=== PATIENT | female | born 1955 | race Caucasian/White ===

== ENCOUNTER → 2019-01-04 | Outpatient (CLI) | payer MEDICARE, BC ==
[~2019-01-04] MED LIST: ALBU90OI61 INH; AMLO10 PO; ESCI10; ESCI10 PO; EZET10-20 PO; FEXO180 PO; FLUSAL2505 IH; GUAI120S1 PO; HYDACE5 PO; LISI20 PO; LOSHYD; MELO7.5 PO; MONT10T PO; PRED20 PO; ROSU10TA; TAMO20 PO; TIOT18 IH
[2019-01-05 14:47] LABS: Stool Occult Bld Immuno 1 Negative (NEGATIVE)
== END | disposition home or self-care (01) ==
LOC: LAB SHORT 10:49 → LAB 10:49
PROVIDERS: Internal Medicine
DX: Z12.11 Encounter for screening for malignant neoplasm of colon (principal)
CPT/HCPCS: 82274

== ENCOUNTER 2020-08-13 18:00 | Emergency (ER) | payer MEDICARE, BC ==
[~2020-08-13] VITALS: Ht 160 cm; Wt 90.7 kg
[2020-08-13 18:36] LABS: BASOPHILS ABSOLUTE AUTO 0.04 K/mm3 (0.00-0.23); BASOPHILS PERCENT AUTO 1 % (0-2); EOSINOPHILS ABSOLUTE AUTO 0.26 K/mm3 (0.00-0.68); EOSINOPHILS PERCENT AUTO 4 % (0-6); Hematocrit 41.5 % (33.0-51.0); Hemoglobin 13.2 g/dL (11.5-16.0); IMMATURE GRAN ABSOLUTE AUTO 0.01 K/mm3 (0.00-0.10); IMMATURE GRAN PERCENT AUTO 0 % (0-1); LYMPHOCYTES ABSOLUTE AUTO 3.33 K/mm3 (0.84-5.20); LYMPHOCYTES PERCENT AUTO 46 % (21-46); MONOCYTES ABSOLUTE AUTO 0.61 K/mm3 (0.16-1.47); MONOCYTES PERCENT AUTO 8 % (4-13); Mean Corpuscular HGB 30.4 pg (26.0-34.0); Mean Corpuscular HGB Conc 31.8 g/dL (31.5-36.5); Mean Corpuscular Volume 96 fL (80-100); Mean Platelet Volume 9.8 fL (9.1-12.4); NEUTROPHILS ABSOLUTE AUTO 2.99 K/mm3 (1.96-9.15); NEUTROPHILS PERCENT AUTO 41 % (41-73); Platelet Count 197 K/mm3 (150-400); RDW Coefficient Variation 12.8 % (11.7-14.2); RDW Standard Deviation 45.6 fL (35.1-46.3); Red Blood Cell Count 4.34 M/mm3 (3.80-5.20); White Blood Cell Count 7.24 K/mm3 (4.00-11.30)
[2020-08-13] MEDS ORDERED: TOPI25 (18:44)
[2020-08-13] MEDS ORDERED: Seroquel Xr50 MG (18:44)
[2020-08-13 19:00] LABS: Source, Urine Voided
[2020-08-13 19:07] LABS: Albumin, Blood 3.4 g/dL (3.4-5.0); Bilirubin, Total 0.5 mg/dL (0.1-1.0); Bun/Creatinine Ratio 17.6 (12.0-20.0); Calcium, Blood 8.8 mg/dL (8.5-10.1); Creatinine, Blood 1.25 mg/dL (0.40-1.00); Globulin, Blood 3.3 g/dL (2.2-4.0); Potassium, Blood 3.8 mmol/L (3.5-5.5); Total Protein, Blood 6.7 g/dL (6.4-8.2)
[2020-08-13 19:10] LABS: Appearance, Urine Hazy (Clear); Blood, Urine 1+ (Neg); Color, Urine Yellow (P-Yellow); Glucose Qualitative, Urine Neg (Neg); Ketones, Urine 1+ (Neg); Leukocyte Esterase, Urine 1+ (Neg); Nitrite, Urine Neg (Neg); Protein, Urine 3+ (Neg); Specific Gravity, Urine 1.025 (1.003-1.022); Urobilinogen, Urine 1+ (Normal)
[2020-08-13 19:25] LABS: Bilirubin, Urine 1+ (Neg)
[2020-08-13 19:26] LABS: Bacteria Mod /hpf; Squamous Epithelial Cells Few /hpf (Few); Transitional Epithelial Cells Few /hpf (0-Rare); White Blood Cells, Urine 25-50 /hpf (0-5)
[2020-08-13 20:15] LABS: Ethanol (Alcohol), Blood, Med <3 mg/dL; Troponin I <0.015 ng/mL (0.000-0.040)
== END 2020-08-13 22:05 | disposition home or self-care (01) ==
LOC: ER 18:00
PROVIDERS: Emergency Medicine
DX: R41.82 Altered mental status, unspecified (principal); R53.1 Weakness; R51 Headache; I10 Essential (primary) hypertension; Z88.8 Allergy status to other drugs, medicaments and biological substances; Z79.899 Other long term (current) drug therapy
CPT/HCPCS: 36415; 71260; 80053; 81001; 83880; 84484; 85025; 85379; 87086; 93005; 93010; 99285-25; G0480; Q9967

== ENCOUNTER 2021-04-27 13:02 | Emergency (ER) | payer MEDICARE, BC ==
[~2021-04-27] VITALS: Ht 160 cm; Wt 90.7 kg
[~2021-04-27 13:02] MED LIST changes: +Seroquel Xr50 MG; +TOPI25
[2021-04-27] MEDS ORDERED: OXAYDO5 M1 PO (14:25)
== END 2021-04-27 14:47 | disposition home or self-care (01) ==
LOC: ER 13:02
DX: S82.851A Displaced trimalleolar fracture of right lower leg, initial encounter for closed fracture (principal); Z79.899 Other long term (current) drug therapy; X50.1XXA Overexertion from prolonged static or awkward postures, initial encounter
CPT/HCPCS: 29515; 73610; 99283-25

== ENCOUNTER → 2024-01-08 | Outpatient (CLI) | payer MEDICARE, BC ==
[~2024-01-08] MED LIST changes: +OXAYDO5 M1 PO
== END ==
LOC: LAB SHORT 17:45
DX: N30.00 Acute cystitis without hematuria (principal)
CPT/HCPCS: 87086